=== PATIENT | male | born 1950 | race Caucasian/White ===

== ENCOUNTER 2020-08-21 08:49 | Outpatient (CLI) | payer MEDICARE, SELFPAY ==
--- NOTE | 2020-08-21 11:30 | NEURO_ITS ---
Impression: # Complains of numbness of lower extremities. # Proximal and distal neuropathy involving motor and sensory nerves. # Neurogenic changes noted on the needle/EMG exam. # Severe mixed neuropathy. # Clinical correlation recommended. Nerve Conduction Studies Anti Sensory Summary Table Stim Site NR Peak (ms) P-T Amp (?V) Site1 Site2 Delta-P (ms) Dist (cm) Abdirizak (m/s) Left Sup Fibular Anti Sensory (Ant Lat Mall) NO RESPONSE 14 cm NR 14 cm Ant Lat Mall 16.0 Right Sup Fibular Anti Sensory (Ant Lat Mall) 14 cm 5.2 12.8 14 cm Ant Lat Mall 5.2 16.0 31 Left Sural Anti Sensory (Lat Mall) Calf 7.4 11.7 Calf Lat Mall 7.4 16.0 22 Right Sural Anti Sensory (Lat Mall) NO RESPONSE Calf NR Calf Lat Mall 16.0 Motor Summary Table Stim Site NR Onset (ms) O-P Amp (mV) Site1 Site2 Delta-0 (ms) Dist (cm) Abdirizak (m/s) Left Peroneal Motor (Vastus Med) Ankle 5.5 1.3 Popit Ankle 11.8 38.0 32 Popit 17.3 0.5 Right Peroneal Motor (Vastus Med) Ankle 4.8 0.4 Popit Ankle 11.0 40.0 36 Popit 15.8 0.2 Left Tibial Motor (Abd Santizo Brev) NO RESPONSE Ankle NR Knee NR Right Tibial Motor (Abd Santizo Brev) NO RESPONSE Ankle NR Knee NR F Wave Studies NR F-Lat (ms) L-R F-Lat (ms) Left Peroneal (Mrkrs) (EDB) 63.13 2.60 Right Peroneal (Mrkrs) (EDB) 65.73 2.60 Left Tibial (Mrkrs) (Abd Hallucis) 63.86 Right Tibial (Mrkrs) (Abd Hallucis) DISPERSED RESPONSE NR EMG Side Muscle Nerve Root Ins Act Fibs Amp Dur Recrt Comment Right AntTibialis Dp Br Fibular L4-5 Nml Nml Nml >12ms Reduced Right Gastroc Tibial S1-2 Nml Nml Nml >12ms Reduced Right Fibularis Long Sup Br Fibular L5-S1 Nml Nml Nml >12ms Reduced Right Flex Dig Long Tibial L5-S2 Nml Nml Nml >12ms Reduced Right Ext Dig Brev Dp Br Fibular L5, S1 Nml Nml Nml >12ms Reduced Left AntTibialis Dp Br Fibular L4-5 Nml Nml Nml >12ms Reduced Left Gastroc Tibial S1-2 Nml Nml Nml >12ms Reduced Left Fibularis Long Sup Br Fibular L5-S1 Nml Nml Nml >12ms Reduced Left Flex Dig Long Tibial L5-S2 Nml Nml Nml >12ms Reduced Left Ext Dig Brev Dp Br Fibular L5, S1 Nml Nml Nml >12ms Reduced MTDD
== END 2020-08-21 08:50 | disposition home or self-care (01) ==
PROVIDERS: PCP Internal Medicine; Visit Provider Clinical Nurse Specialist
DX: G62.9 Polyneuropathy, unspecified (principal)
CPT/HCPCS: 95886; 95910

== ENCOUNTER 2021-03-19 11:50 | Outpatient (CLI) | payer MEDICARE, SELFPAY ==
--- NOTE | ~2021-03-19 | XR_ITS ---
XR hip BI 2V w AP pelvis 03/19/2021 12:32 Indication: Hip pain Procedure: 3 views each hip including AP pelvis Comparison: No prior studies for comparison. Findings: There is osteoarthritis of the hips. There is lower lumbar spondylosis. No fracture or trau matic malalignment. Sacral foramen are symmetric. Impression: 1: Mild symmetric osteoarthritis of the hips. Reviewed, dictated and finalized at location B. Impression: 1: Mild symmetric osteoarthritis of the hips.
== END 2021-03-19 11:51 | disposition home or self-care (01) ==
PROVIDERS: PCP Internal Medicine; Visit Provider Nurse Practitioner
DX: M16.0 Bilateral primary osteoarthritis of hip (principal)
CPT/HCPCS: 73521

== ENCOUNTER 2021-04-10 13:05 | Outpatient (RCR) | payer MEDICARE, SELFPAY ==
--- NOTE | 2021-04-10 14:24 | PTOPEVAL ---
PHYSICAL THERAPY EVALUATION Thank you for referring Santosh Blackburn to [facility]. Please review, sign, date and return this plan of care BLACK. I agree with and certify that the following plan of care is medically necessary. Referring Physician Date Attending Provider: Svetlana Vargas NP Evaluation Diagnosis right hip pain Subjective Information Santosh is here today for c/o Query Text:As Reported By Patient/ right hip pain. He reports Family that the pain and symptoms are not unmanageable, but he does go on 3-4 mile walks and he will get stiff or more sore and have a difficult time getting into the car. Also states that lying on his right side it can be more painful. States that he will also find himself walking up on the stairs one at a time on the left some due to pain and some due to difficulty. Self Report Pain Assessment Right Hip(s) Reported Pain Level 1 Pain Description Aching Pain Frequency Chronic,Intermittent Lowest Pain Intensity 0 Greatest Pain Intensity 5 Pain Aggravating Factors Lifting,Stair Climbing Pain Behaviors None Pain Score Pain Score 1: Self Report Interventions Used Interventions Used By Clinicians Exercise,Joint Mobilization Lower Extremity Range of Motion Hip Range of Motion Right Hip Medial Rotation - Passive 40 Hip Lateral Rotation - Passive 45 Lower Extremity Muscle Strength Testing Hip Strength Left Hip Flexion Strength 4+ Good + Hip Extension Strength 3 Fair Hip Abduction Strength 4- Good - Hip Medial Rotation Strength 4+ Good + Hip Lateral Rotation Strength 4+ Good + Hip Strength Comments SLS: ~1-2seconds Right Hip Flexion Strength 4- Good - Hip Extension Strength 3- Fair - Hip Abduction Strength 3 Fair Hip Medial Rotation Strength 4 Good Hip Lateral Rotation Strength 4 Good Hip Strength Comments SLS: ~1-2seconds Knee Strength Bilateral Knee Flexion Strength 5 Normal Knee Extension Strength 5 Normal Muscle Length Testing Muscle Length Testing Left Hamstring Length -30 Query Text:(90 - 90 Position) Right Hamstring Length -50 Query Text:(90 - 90 Position) Palpation Assessment Palpation Palpation tender to palpation of right gluteus medius - patient
--- NOTE | 2021-08-19 17:38 | PCPTNOTE ---
PHYSICAL THERAPY Attending Provider: Svetlana Vargas NP Patient:Santosh Blackburn Date of :1950 Patient has not returned for any further treatments since 04/10/2021, therefore will be discharged at this time. Patient?s initial visit was on 04/10/2021. At time of initial evaluation, Santosh did not feel like he could commit to repeat visits so I left his chart open in case he had any questions. He never reached out so I will assume he is comfortable with his HEP. Thank you for referring this patient to [facility]. Please review, sign, date and return this discharge summary BLACK. I have been updated about the patient's current status and I agree with discharge from the above service at this time. Referring Physician Date
== END 2021-06-24 13:03 | disposition home or self-care (01) ==
LOC: ANHPT 13:05
PROVIDERS: PCP Internal Medicine; Visit Provider Nurse Practitioner
DX: M25.551 Pain in right hip (principal)
CPT/HCPCS: 97110; 97161

== ENCOUNTER 2021-12-26 03:09 | Day surgery (SDC) | payer MEDICARE, SELFPAY ==
[2021-12-18 13:10] VITALS: BMI 33.0
[2021-12-26 11:36] VITALS: BP 144/84; PULSE 60; RESP 20; TEMP 36.2; O2SAT 100
[2021-12-26] MEDS: LACTATED RINGERS 1,000 ML 150 ML IV CONT (11:52)
--- NOTE | 2021-12-26 12:23 | PM.HPGS ---
History of Present Illness History of Present Illness Consent: Risks, benefits, and alternatives have been discussed and questions answered. Patient agrees to proceed with procedure. Chief complaint: positive FOBT Narrative: Santosh Blackburn is a 71 year old male referred for colon cancer screening. He recently did a test for occult blood in the stools which was positive. His last colonoscopy was 13 years ago Review of Systems Review of Systems: All systems reviewed & are unremarkable except as noted in HPI and below PMFSH Past Medical History Medical History Allergies Atrial fibrillation Colonic polyp HTN (hypertension) Hypogonadism Hypothyroid Insomnia Mixed hyperlipidemia Peripheral neuropathy Surgical History Surgical History History of prostatectomy Family History Family History Sibling Diabetes mellitus Patient's brother is in good health Father Family history unknown Mother Family history unknown Other Family history of alcoholism Hypertension Social History Social History Smoking packs per day: 1.5 Smoking cigarettes per day: 30.0 Years smoked: 10 Smoking pack-years: 15.00 Smoking status: Former smoker Tobacco type: cigarettes Smoking end date: 10/12/76 Alcohol intake: never Substance use: current Substance use type: marijuana and opiates Other substance usage details: Percocet as needed for neuropathy pain. Smokes a little pot for pain Living arrangements: alone Spiritual care concerns: No Meds Home Medications and Allergies Home Medications Medication Instructions Recorded Confirmed Type metoprolol succinate 100 mg 100 mg PO DAILY 05/07/20 12/18/21 History tablet,extended release 24 hr rivaroxaban 20 mg tablet 20 mg PO DAILY 05/07/20 12/18/21 History hydrocodone 5 mg-acetaminophen 325 1 tablet PO Q12H PRN #38 tablet 03/20/21 12/18/21 Rx mg tablet levothyroxine 88 mcg tablet 88 mcg PO DAILY #90 tablet 05/27/21 12/18/21 Rx atorvastatin 10 mg tablet 10 mg PO QHS #90 tablet 06/12/21 12/18/21 Rx losartan 100 mg tablet 100 mg PO DAILY 06/12/21 12/18/21 History trazodone 50 mg tablet 50 mg PO QHS 06/12/21 12/18/21 History allopurinol 100 mg tablet 100 mg PO DAILY #90 tablet 10/22/21 12/18/21 Rx gabapentin 400 mg capsule 400 mg PO QHS #90 cap 11/19/21 12/18/21 Rx Allergies Allergy/AdvReac Type Severity Reaction Status Date / Time No Known Allergies Allergy Verified 06/12/21 11:00 Vital Signs Vital Signs - 24 hr 12/26/21 11:36 Temperature 36.2 C L Pulse Rate 60 Respiratory Rate 20 Blood Pressure 144/84 H Pulse Oximetry 100 Exam Const: General: alert Orientation/consciousness: patient oriented x3 Resp: Auscultation: clear to auscultation bilaterally Cardio: Rhythm: regular rhythm GI: GI Palp: Yes Soft to palpation and No Tenderness to palpation present (GI) Neuro: General: patient oriented x3 Assessment and Plan Assessment and plan (1) Colon cancer screening: Code(s): Z12.11 - Encounter for screening for malignant neoplasm of colon Status: Acute Assessment and Plan: Colonoscopy with possible biopsy or polypectomy or cautery or injection of substances.
--- NOTE | 2021-12-26 12:24 | WPDANESEPPF ---
Anes - Initial Pre Proc Eval Procedure: Operation Date: 12/26/21 13:00 Proposed Procedures p Colonoscopy - Anupam Graff MD Date/Time: 12/26/21 12:24 Surgeon: Anupam Graff MD Pre Op Diagnosis: positive FOBT Patient Data Age: 71 Gender: M Height: 1.78 m Weight: 105.3 kg Last Vital Signs Temp 36.2 C L 12/26/21 11:36 Pulse 60 12/26/21 11:36 Resp 20 12/26/21 11:36 BP 144/84 H 12/26/21 11:36 Pulse Ox 100 12/26/21 11:36 Allergies Allergy/AdvReac Type Severity Reaction Status Date / Time No Known Allergies Allergy Verified 06/12/21 11:00 Home Medications Medication Instructions Recorded Confirmed Type metoprolol succinate 100 mg 100 mg PO DAILY 05/07/20 12/18/21 History tablet,extended release 24 hr rivaroxaban 20 mg tablet 20 mg PO DAILY 05/07/20 12/18/21 History hydrocodone 5 mg-acetaminophen 325 1 tablet PO Q12H PRN #38 tablet 03/20/21 12/18/21 Rx mg tablet levothyroxine 88 mcg tablet 88 mcg PO DAILY #90 tablet 05/27/21 12/18/21 Rx atorvastatin 10 mg tablet 10 mg PO QHS #90 tablet 06/12/21 12/18/21 Rx losartan 100 mg tablet 100 mg PO DAILY 06/12/21 12/18/21 History trazodone 50 mg tablet 50 mg PO QHS 06/12/21 12/18/21 History allopurinol 100 mg tablet 100 mg PO DAILY #90 tablet 10/22/21 12/18/21 Rx gabapentin 400 mg capsule 400 mg PO QHS #90 cap 11/19/21 12/18/21 Rx Patient hx anesthesia problems: none Family hx anesthesia problems: none Results Review: All pre-operative results and documents have been reviewed as part of the pre-operative evaluation. [facility] Past Medical History Medical History Allergies Atrial fibrillation Colonic polyp HTN (hypertension) Hypogonadism Hypothyroid Insomnia Mixed hyperlipidemia Peripheral neuropathy Surgical History Surgical History History of prostatectomy Family History Family History Sibling Diabetes mellitus Patient's brother is in good health Father Family history unknown Mother Family history unknown Other Family history of alcoholism Hypertension Social History Social History Smoking packs per day: 1.5 Smoking cigarettes per day: 30.0 Years smoked: 10 Smoking pack-years: 15.00 Smoking status: Former smoker Tobacco type: cigarettes Smoking end date: 10/12/76 Alcohol intake: never Substance use: current Substance use type: marijuana and opiates Other substance usage details: Percocet as needed for neuropathy pain. Smokes a little pot for pain Living arrangements: alone Spiritual care concerns: No Anes - Eval Final PreProcedure Day of Procedure 12/26/21 12:24 Patient weight: obese Heart: regular rate and rhythm Lungs: clear to auscultation Airway: Mallampati scale class II Neurological: alert and oriented Last oral intake: >/= 8 hours ASA classification: III Emergent: no Anesthetic plan: proceed Anesthesia type and monitoring: general GIVS and standard monitoring Results Review: All pre-operative results and documents have been reviewed as part of the pre-operative evaluation. Informed Consent: The patient's anesthetic plan and its attendant risks and benefits were discussed with the patient/family/POA. Questions were solicited and answers provided to the satisfaction of the patient/family/POA.
[2021-12-26 13:19] VITALS: BP 80/47; PULSE 65; RESP 21; O2SAT 97
[2021-12-26 13:29] VITALS: BP 107/65; PULSE 54; RESP 19; O2SAT 99
[2021-12-26 13:39] VITALS: BP 115/72; PULSE 61; RESP 18; O2SAT 100
== END 2021-12-26 14:10 | disposition home or self-care (01) ==
PROVIDERS: PCP Internal Medicine; Visit Provider Internal Medicine Gastroenterology
PROC: 0DJD8ZZ Inspection of Lower Intestinal Tract, Via Natural or Artificial Opening Endoscopic (ICD-10-PCS; CPT 45378; principal; 2021-12-26 13:00)
DX: Z12.11 Encounter for screening for malignant neoplasm of colon (principal); D12.2 Benign neoplasm of ascending colon; R19.5 Other fecal abnormalities; K57.30 Diverticulosis of large intestine without perforation or abscess without bleeding; I48.91 Unspecified atrial fibrillation; I10 Essential (primary) hypertension; E78.2 Mixed hyperlipidemia; E03.9 Hypothyroidism, unspecified; G62.9 Polyneuropathy, unspecified; Z79.01 Long term (current) use of anticoagulants; Z79.891 Long term (current) use of opiate analgesic; F12.90 Cannabis use, unspecified, uncomplicated
CPT/HCPCS: 45385; 88305; J2704; J7120

== ENCOUNTER → 2022-08-18 15:01 | Outpatient (CLI) | payer MEDICARE, SELFPAY ==
--- NOTE | ~2022-08-18 | XR_ITS ---
EXAMINATION: XR chest 2V DATE: 08/18/2022 15:25 INDICATION: Decreased breath sounds in the right lung base TECHNIQUE: PA and lateral views of the chest are obtained. COMPARISON: 06/10/2017 FINDINGS: The lungs are free of acute opacities. There is mild elevation of the right hemidiaphragm. No pleural effusion or pneumothorax. The cardiomediastinal silhouette is normal. There is moderate th oracic spondylosis. IMPRESSION: 1. No acute cardiopulmonary abnormality. Reviewed, dictated and finalized at location B. 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
== END ==
PROVIDERS: PCP Internal Medicine; Visit Provider Internal Medicine
DX: R06.89 Other abnormalities of breathing (principal)
CPT/HCPCS: 71046

== ENCOUNTER 2024-07-11 10:37 | Outpatient (CLI) | payer MEDICARE, SELFPAY ==
[2024-07-11 13:30] LABS: Basophils Percent Auto 0.3 % (0.2-1.2); Eosinophils Percent Auto 0.4 % (0-4.4); Hematocrit 45.3 % (42.0-52.0); Hemoglobin 14.5 g/dL (14.0-18.0); Immature Granulocyte Absolute 0.03 K/mm3 (0.00-0.031); Immature Granulocyte Percent A 0.4 % (0-0.5); Mean Corpuscular Hemoglobin 29.6 pg (26-34); Mean Corpuscular Volume 92.4 fl (80-100); Mean Platelet Volume 10.3 fl (7.4-10.4); Monocytes Absolute Auto 0.4 K/mm3 (0.1-0.6); Monocytes Percent Auto 5.4 % (2.6-8.5); Neutrophils Absolute Auto 4.9 K/mm3 (1.3-6.7); Neutrophils Percent Auto 71.5 % (45.5-73.1); Platelet Count Result 192 k/mm3 (150-375); White Blood Count 6.8 K/mm3 (4.5-10.0)
[2024-07-11 13:41] LABS: Anion Gap 7 mmol/L (4-12); Blood Urea Nitrogen 12 mg/dL (9-20); Calcium 9.2 mg/dL (8.4-10.2); Carbon Dioxide 30 mmol/L (22-30); Chloride 102 mmol/L (98-107); Estimated Glomerular Filt Rate > 60; Glucose 97 mg/dL (65-110); Potassium 4.1 mmol/L (3.4-5.0); Sodium 139 mmol/L (137-145)
[2024-07-11 14:09] LABS: Prostate Specific Antigen < 0.1 ng/mL (< OR = 4.0)
== END 2024-07-11 10:38 | disposition home or self-care (01) ==
PROVIDERS: PCP Internal Medicine; Visit Provider Internal Medicine
DX: I48.0 Paroxysmal atrial fibrillation (principal); E03.9 Hypothyroidism, unspecified; I10 Essential (primary) hypertension; Z79.01 Long term (current) use of anticoagulants; Z85.46 Personal history of malignant neoplasm of prostate
CPT/HCPCS: 36415; 80048; 84153; 84443; 85025

== ENCOUNTER 2024-12-13 11:41 | Outpatient (CLI) | payer MEDICARE, SELFPAY ==
[2024-12-13 13:24] LABS: Basophils Percent Auto 0.2 % (0.2-1.2); Eosinophils Percent Auto 0.5 % (0-4.4); Hematocrit 42.4 % (42.0-52.0); Hemoglobin 14.1 g/dL (14.0-18.0); Immature Granulocyte Absolute 0.01 K/mm3 (0.00-0.031); Immature Granulocyte Percent A 0.2 % (0-0.5); Lymphocytes Absolute Auto 1.26 K/mm3 (0.9-3.2); Lymphocytes Percent Auto 21.4 % (18.3-44.2); Mean Corpuscular HGB Conc 33.3 g/dl (32-36); Mean Corpuscular Hemoglobin 30.3 pg (26-34); Mean Corpuscular Volume 91.2 fl (80-100); Mean Platelet Volume 10.1 fl (7.4-10.4); Monocytes Absolute Auto 0.4 K/mm3 (0.1-0.6); Monocytes Percent Auto 6.1 % (2.6-8.5); Neutrophils Absolute Auto 4.2 K/mm3 (1.3-6.7); Neutrophils Percent Auto 71.6 % (45.5-73.1); Platelet Count Result 189 k/mm3 (150-375); Red Blood Count 4.65 M/mm3 (4.6-6.20); Red Cell Distribution Width 13.4 % (11.5-14.5); White Blood Count 5.9 K/mm3 (4.5-10.0)
[2024-12-13 14:23] LABS: Free T3 2.91 pg/mL (2.45-5.93)
[2024-12-13 21:59] LABS: Alanine Aminotransferase 14 U/L (6-50); Albumin Level 4.2 g/dL (3.5-5.1); Alkaline Phosphatase 53 U/L (38-126); Anion Gap 8 mmol/L (4-12); Aspartate Amino Transferase 27 U/L (17-59); Bilirubin,Total 0.6 mg/dL (0.2-1.3); Blood Urea Nitrogen 8 mg/dL (9-20); Calcium 9.3 mg/dL (8.4-10.2); Carbon Dioxide 29 mmol/L (22-30); Chloride 104 mmol/L (98-107); Cholesterol 150 mg/dL (0-200); Estimated Glomerular Filt Rate > 60; Glucose 105 mg/dL (65-110); HDL Direct 30 mg/dL; Potassium 4.3 mmol/L (3.4-5.0); Sodium 141 mmol/L (137-145); Triglycerides 86 mg/dL (<150)
[2024-12-13 22:12] LABS: LDL Cholesterol Direct 95 mg/dL
[2024-12-13 22:30] LABS: Prostate Specific Antigen < 0.1 ng/mL (< OR = 4.0)
== END 2024-12-13 11:42 | disposition home or self-care (01) ==
PROVIDERS: PCP Internal Medicine; Visit Provider Internal Medicine
DX: I48.91 Unspecified atrial fibrillation (principal); I10 Essential (primary) hypertension; E78.2 Mixed hyperlipidemia; Z79.01 Long term (current) use of anticoagulants; E03.9 Hypothyroidism, unspecified; Z85.46 Personal history of malignant neoplasm of prostate; I48.0 Paroxysmal atrial fibrillation
CPT/HCPCS: 36415; 80053; 80061; 82172; 84153; 84443; 84481; 85025

== ENCOUNTER 2025-06-05 13:30 | Outpatient (CLI) | payer MEDICARE, SELFPAY ==
--- OUTSIDE RECORDS SUMMARY | 2025-06-05 13:37 | XMS_ITS | Clinical Summary ---
Author Organization [facility] Address [address] [place] [address] Care Team Providers Care Restaurant Assistant Name Role Phone Damian Wright DO Primary Care Provider [phone] Joe Bond MD Unavailable [phone] Allergies No known active allergies Medications levothyroxine (SYNTHROID) 88 MCG tablet Take 1 tablet (88 mcg total) by mouth daily. Active losartan (COZAAR) 50 MG tablet Take 1 tablet (50 mg total) by mouth daily. Active allopurinol (ZYLOPRIM) 100 MG tablet Take 1 tablet (100 mg total) by mouth daily. Active pentoxifylline CR (TRENTAL) 400 MG tablet Take 1 tablet (400 mg total) by mouth 3 (three) times daily with meals. Active metoprolol succinate ER (TOPROL-XL) 100 MG 24 hr tablet Take 1 tablet (100 mg total) by mouth nightly. Active atorvastatin (LIPITOR) 10 MG tablet Take 1 tablet (10 mg total) by mouth nightly at bedtime. Active rivaroxaban (XARELTO) 20 MG Tab tablet Take 1 tablet (20 mg total) by mouth nightly. Active traZODone (DESYREL) 50 MG tablet Take 1 tablet (50 mg total) by mouth nightly at bedtime. Active gabapentin (NEURONTIN) 300 MG capsule Take 1 capsule (300 mg total) by mouth nightly. Active Multiple Vitamins-Minera ls (MULTIVITAL OR) Take 1 tablet by mouth daily. Active COLLAGEN OR Take 1 tablet by mouth daily. Active HYDROcodone-ke taminophen (NORCO) 5-325 MG tablet Take 1 tablet by mouth nightly as needed. 06/09/2022 Active Family History Medical History Relation Comments Diabetes Brother Hypertension Brother Diabetes Father Hypertension Father Hypertension Mother Diabetes Sister Hypertension Sister Relation Status Comments Brother Alive Daughter Alive Father Mother Sister Son Alive Social History Tobacco Use Types Packs/Day Years Used Date Smoking Tobacco: Former Cigarettes 1 10 1 - 1991 Smokeless Tobacco: Former Quit: 1991 Tobacco Cessation:Counseling Given: Not Answered Alcohol Use Standard Drinks/Week Comments Never 0 (1 standard drink = 0.6 oz pur e alcohol) Sex and Gender Information Value Date Recorded Sex Assigned at Not on file Legal Sex Male 11:31 AM CDT Gender Identity Not on file Sexual Orientation Not on file Last Filed Vital Signs Vital Sign Reading Time Taken Comments Blood Pressure 143/87 01/31/2025 10:25 AM CDT Pulse 69 01/31/2025 10:25 AM CDT Temperature 36 C (96.8 F) 01/31/2025 10:25 AM CDT Respiratory Rate 16 01/31/2025 10:2 5 AM CDT Oxygen Saturation 98% 01/31/2025 10: 25 AM CDT Inhaled Oxygen Concentration - - Weight 98.4 kg (216 lb 14.9 oz) 01/31/2025 7:30 AM CDT Height 180.3 cm (5' 11) 01/31/2025 7:30 AM CDT Body Mass Index 30.26 01/31/2025 7:30 AM CDT Plan of Treatment Health Maintenance Due Date Last Done Comments Colorectal Cancer Screening Colonoscopy (10 Years) 1952 Hepatitis C 1970 DTaP, Tdap and Td Vaccines (1 - Tdap) 1971 AAA SCREENING 2017 Annual Medicare Wellness Visit 2017 Pneumococcal Vaccine: 50+ Years (2 of 2 - PPSV23) 05/29/2021 05/29/2020 COVID-19 Vaccine ( - season) 2024 04/01/2022, 08/29/2021, 01/15/2021, Additional history exists RSV Immunization or 60+ Years (1 - 1-dose 75+ series) 2027 Zoster Vaccines Completed 09/27/2020, 05/29/2020 Meningococcal B Vaccine Aged Out No l onger eligible based on patient's age to complete this topic Meningococcal Vaccine Aged Out No mark anthony daniel eligible based on patient's age to complete this topic RSV Immunizations Under 20 Months Aged Out No longer eligible based on patient's age to complete this topic Medical Devices Implanted Type Area Frame Repairer Device Identifier Shelf Expiration Date Model / Serial / Lot Wire Fixation [employer] L9 In Od.045 In 2 Tr - [id number] Implanted:Qty: 3 on 06/17/2022 by Preet Dias DPM at [facility] Wire Left: Toe [employer] [id number] / / Description:3 wires used and implanted into 2nd, 3rd, 4th, and 5th toes of left foot Wire Fixation [employer] L9 In Od.045 In 2 Tr - [id number] Implanted:Qty: 1 on 01/31/2025 by Preet Dias DPM at [facility] Wire Right: Toe [employer] 1600-945NS / / Description:2nd toe Insurance [facility] Care Teams Restaurant Assistant Relationship Specialty Start Date End Date Damian Wright DO [address] [facility] [address] [place], [place] [id number] PCP - General INTERNAL MEDICINE 06/05/22 [place] [address] [address] CARDIOVASCULAR DISEASE 06/10/22
--- OUTSIDE RECORDS SUMMARY | 2025-06-05 13:37 | XMS_ITS | Clinical Summary ---
Author Organization [facility] Address [facility] [place] [address] Care Team Providers Care Irs Agent Name Role Phone Damian Wright DO Primary Care Provider [phone] Allergies No known active allergies Medications ALPRAZolam (XANAX) 0.5 mg tablet take 1 tablet by oral route 3 times every day 0 0 4 Active rivaroxaban (XARELTO) 20 mg tabletIndication s:a- fib Take 1 tablet by mouth nightly. Active metoprolol XL (TOPROL-XL) 100 mg 24 hr tabletIndication s:hypertension Take 100 mg by mouth nightly. Active traZODone (DESYREL) 100 mg tabletIndication s:insomnia associated with depression Take 100 mg by mouth nightly. Active levothyroxine (SYNTHROID, LEVOTHROID) 88 mcg tabletIndication s:hypothyroidism Take 88 mcg by mouth room attendants before breakfast. Active allopurinol (ZYLOPRIM) 100 mg tablet 8 Active losartan (COZAAR) 50 mg tablet 9 Active acetaminophen 500 mg capsuleIndicatio ns:Pain Take 2 capsules (1,000 mg total) by mouth every 6 (six) hours as needed for pain. 90 tablet 9 Active docusate sodium (COLACE) 100 mg capsuleIndicatio ns:constipation Take 1 capsule (100 mg total) by mouth 2 (two) times a day as needed for constipation. 60 capsule 9 Active bacitracin-polym yxin B (POLYSPORIN) ointmentIndicati ons:Minor Bacterial Skin Infections Apply topically 3 (three) times a day as needed (irritation). 15 g 9 Active oxybutynin (DITROPAN) 5 mg tablet Take 1 tablet (5 mg total) by mouth 3 (three) times a day as needed (bladder spasms). 40 tablet 9 Active sildenafiL (VIAGRA) 100 mg tabletIndication s:Erectile Dysfunction Take 1/2 or 1 tablet ONE hour prior to activity on an empty stomach daily PRN 30 tablet 11 3 Active Active Problems Problem Noted Date Diagnosed Date Prostate cancer 10/19/2018 Overview (10/19/2018): Added automatically from request for surgery [id number] Alcoholic hepatitis 11/22/2012 Overview (01/15/2017): Alcoholic hepatitis Nondependent alcohol abuse, in remission 013 Overview (01/15/2017): ALCOHOL ABUSE-IN REMISS Pure hypercholesterolemia 11/22/2012 Overview (01/15/2017): PURE HYPERCHOLESTEROLEM Hypertension 11/22/2012 Overview (01/16/2017): HYPERTENSION NOS History of anticoagulant therapy 11/22/2012 Overview (01/16/2017): LONG-TERM USE ANTICOAGUL Atrial fibrillation 11/22/2012 Overview (01/16/2017): ATRIAL FIBRILLATION Surgical History Surgery Date Site/Laterality Comments HERNIA REPAIR Hernia repair EYE SURGERY 10/12/2017 - 10/11/2018 Medical History Medical History Date Comments Gout Gout Hx Other Medical Pseudogout Hx Other Medical Recovered EtOH abuse (September 12 013; Comments: [facility] 03/20/2014 - Hx Other Medical Hernia repair; Comments: [facility] 03/20/2014 - HTN (hypertension) HLD (hyperlipidemia) Hypothyroid Atrial fibrillation (HCC) Alcoholic hepatitis Prostate cancer (HCC) Sleep apnea Family History Medical History Relation Name Comments Heart disease Father heart disease; Cause of : heart disease Other Mother Pacemaker; Other Other 2 alcohol abuse; Anesthesia problems Neg Hx Relation Name Status Comments Father Mother Alive Other 1 Alive Other 2 Social History Tobacco Use Types Packs/Day Years Used Date Smoking Tobacco: Former Cigarettes 2 16 1 967 - 1982 Smokeless Tobacco: Never Alcohol Use Standard Drinks/Week Comments No 0 (1 standard drink = 0.6 oz pur e alcohol) no longer drinks--x 2.5 years Sex and Gender Information Value Date Recorded Sex Assigned at Not on file Legal Sex Male 2:47 AM PLACEMENT MANAGER Gender Identity Not on file Sexual Orientation Not on file Obstetrics History Last Filed Vital Signs Vital Sign Reading Time Taken Comments Blood Pressure 165/85 02/08/2019 10:44 AM CDT Pulse 63 12/09/2018 12:11 PM PLACEMENT MANAGER Temperature 36.4 C (97.6 F) 02/08/2019 10:44 AM CDT Respiratory Rate 18 12/09/2018 12:1 1 PM PLACEMENT MANAGER Oxygen Saturation 95% 12/09/2018 12: 11 PM PLACEMENT MANAGER Inhaled Oxygen Concentration - - Weight 112.6 kg (248 lb 3.8 oz) 019 11:58 AM PLACEMENT MANAGER Height 180.3 cm (5' 10.98) 12/08/2018 11:58 AM PLACEMENT MANAGER Body Mass Index 34.64 12/08/2018 11:58 AM PLACEMENT MANAGER Plan of Treatment Health Maintenance Due Date Last Done Comments Colon Cancer Screening-Colonoscopy 1950 Depression Screening 1950 Fall Risk Assessment 1950 Hepatitis C Screening 1950 DTaP/Tdap/Td Vaccine (1 - Tdap) 1963 Hepatitis B Screening 1970 Abdominal Aortic Aneurysm (A AA) Screen 2017 Well Visit 65+ 2017 Zoster Vaccine (2 of 2) 07/24/2020 05/29/2020 Pneumococcal vaccine 65+ (2 of 2 - PCV20 or PCV21) 05/29/2021 05/29/2020 Influenza Vaccine (#1) 2025 06/12/2020 Prostate Cancer Screening-PSA Discontinued , 11/07/2022, 09/11/2020, Additional history exists Procedures Procedure Name Priority Date/Time Associated Diagnosis Comments PSA SCREEN Routine 11/23/2023 11:04 AM PLACEMENT MANAGER History of prostate cancer from Last 3 Months or Most Recently Relevant to Health Maintenance Results * PSA screen (11/23/2023 11:04 AM PLACEMENT MANAGER) PSA <0.1 0.0 - 4.0 ng/mL [facility] - 01 Comment: Ana ECLIA methodology. According to the [place] [employer], Serum PSA should decrease and remain at undetectable levels after radical prostatectomy. The AUA defines biochemical recurrence as an initial PSA value 0.2 ng/mL or greater followed by a subsequent confirmatory PSA value 0.2 ng/mL or greater. Values obtained with different assay methods or kits cannot be used interchangeably. Results cannot be interpreted as absolute evidence of the presence or absence of malignant disease. Blood 11/23/2023 11:0 4 AM PLACEMENT MANAGER 11/23/2023 Narrative [facility] - 11/24/2023 4:08 AM PLACEMENT MANAGER Performed at: 01 - [address] [id number] Personal Development Mentor: Carlos A Gold PhD, Phone: [phone] Betito Sanchez NP LAB BLOOD ORDERABLES F inal Result [facility] - 01 from Last 3 Months or Most Recently Relevant to Health [place] [address] [facility] Address: [facility] [id number] [place] [phone] [facility] MEDICARE [facility] Address: [facility] [id number] [place] [phone] Advance Directives For more information, please contact: [phone] * Full Code (Latest Code Status on File) Date Activated Date Inactivated Comments 12/08/2018 8:53 PM 12/09/2018 6:06 PM Care Teams Irs Agent Relationship Specialty Start Date End Date Damian Wright DO PCP - General 12/03/12
[2025-06-05 15:45] LABS: Prostate Specific Antigen < 0.1 ng/mL (< OR = 4.0)
== END 2025-06-05 13:31 | disposition home or self-care (01) ==
LOC: ANHGOSHLAB 13:30
PROVIDERS: PCP Internal Medicine; Visit Provider Internal Medicine
DX: Z12.5 Encounter for screening for malignant neoplasm of prostate (principal); Z85.46 Personal history of malignant neoplasm of prostate
CPT/HCPCS: 36415; 84153

== ENCOUNTER 2025-08-24 15:48 | Outpatient (CLI) | payer MEDICARE, SELFPAY ==
--- OUTSIDE RECORDS SUMMARY | 2025-08-24 15:50 | XMS_ITS | Clinical Summary ---
Author Organization [facility] Address Formerly [facility], [facility] [place] [address] Care Team Providers Care Manager Lsw Name Role Phone Damian Wright DO Primary Care Provider [phone] Allergies No known active allergies Medications ALPRAZolam [...] tabletIndication s:hypothyroidism Take 88 mcg by mouth shift manager before breakfast. Active allopurinol (ZYLOPRIM) 100 mg [...] (10/19/2018): Added automatically from request for surgery [id number] Alcoholic hepatitis 11/22/2012 Overview (01/15/2017): Alcoholic hepatitis [...] Recovered EtOH abuse (September 12 013; Comments: Mayra 03/20/2014 - Hx Other Medical Hernia repair; Comments: [facility] 03/20/2014 - HTN (hypertension) HLD (hyperlipidemia) Hypothyroid [...] on file Legal Sex Male 2:[address] REGISTRAR Gender Identity Not on file Sexual Orientation Not on file Last Filed Vital Signs Vital Sign Reading Time Taken Comments Blood Pressure 165/85 02/08/2019 10:44 AM CDT Pulse 63 12/09/2018 12:[address] REGISTRAR Temperature 36.4 C (97.6 F) 02/08/2019 10:44 AM CDT Respiratory Rate 18 12/09/2018 12:[address] REGISTRAR Oxygen Saturation 95% 12/09/2018 12: [address] REGISTRAR Inhaled Oxygen Concentration - - Weight 112.6 kg (248 lb 3.8 oz) 019 11:[address] REGISTRAR Height 180.3 cm (5' 10.98) 12/08/2018 11:[address] REGISTRAR Body Mass Index 34.64 12/08/2018 11:[address] REGISTRAR Plan of Treatment Health Maintenance Due Date [...] Comments PSA SCREEN Routine 11/23/2023 11:[address] REGISTRAR History of prostate cancer from Last 3 Months or Most Recently Relevant to Health Maintenance Results * PSA screen (11/23/2023 11:[address] REGISTRAR) PSA <0.1 0.0 - 4.0 ng/mL [facility] - 01 Comment: Ana ECLIA methodology. According to the [employer], Serum PSA should decrease and [...] malignant disease. Blood 11/23/2023 11:[address] REGISTRAR 11/23/2023 Narrative [facility] - 11/24/2023 4:[address] REGISTRAR Performed at: 01 - [address] [id number] Shells Inspector: Carlos A Gold PhD, Phone: [phone] Betito Sanchez NP LAB BLOOD ORDERABLES F inal Result [facility] - 01 from Last 3 Months or Most Recently Relevant to Health Maintenance Insurance [employer] [facility] [facility] MEDICARE ADVANTAGE [employer] MED[employer] ADVANTAGE Advance Directives For more information, please contact: [phone] * Full Code (Latest Code Status on File) Date Activated Date Inactivated Comments 12/08/2018 8:53 PM 12/09/2018 6:06 PM Care Teams Manager Lsw Relationship Specialty Start Date End Date Damian Wright DO PCP - General 12/03/12
--- OUTSIDE RECORDS SUMMARY | 2025-08-24 15:50 | XMS_ITS | Clinical Summary ---
Author Organization [facility] Address [address] [place] [address] Care Team Providers Care Piano Refinisher Name Role Phone Damian Wright DO Primary Care Provider [phone] Joe Bond MD Unavailable [phone] Allergies No known active allergies Medications [...] Vaccine: 50+ Years (2 of 2 - PCV20 or PCV21) 05/29/2021 05/29/2020 COVID-19 Vaccine (5 - season) 2025 04/01/2022, 08/29/2021, 01/15/2021, Additional history exists Influenza Adult (#1) 2025 RSV Immunization or 60+ Years (1 - 1-dose 75+ series) 2027 Zoster Vaccines Completed 09/27/2020, 05/29/2020 Hepatitis A Vaccines Aged Out No long er eligible based on patient's age to complete this topic Meningococcal B Vaccine Aged Out No l onger eligible based on patient's age to complete this topic Meningococcal Vaccine Aged Out No mark anthony daniel eligible based on patient's age to complete this topic RSV Immunizations Under 20 Months Aged Out No longer eligible based on patient's age to complete this topic Medical Devices Implanted Type Area Aligner Typewriter Device Identifier Shelf Expiration Date Model / Serial / Lot Wire Fixation [employer] L9 In Od.045 In 2 Tr - [id number] Implanted:Qty: 3 on 06/17/2022 by Preet Dias DPM at [facility] Wire Left: Toe [employer] [id number] / / Description:3 wires used and implanted into 2nd, 3rd, 4th, and 5th toes of left foot Wire Fixation [employer] L9 In Od.045 In 2 Tr - [id number] Implanted:Qty: 1 on 01/31/2025 by Preet Dias DPM at [facility] Wire Right: Toe [employer] [id number] / / Description:2nd toe Insurance [facility] MEDICARE Care Teams Piano Refinisher Relationship Specialty Start Date End Date Damian Wright DO [address] [facility] [address] [place] [address] PCP - General INTERNAL MEDICINE 06/05/22 [place] [address] [place] [address] [address] CARDIOVASCULAR DISEASE 06/10/22
[2025-08-24 19:57] LABS: Ferritin 97.00 ng/mL (11.1-264)
== END 2025-08-24 15:49 | disposition home or self-care (01) ==
LOC: ANHGOSHLAB 15:49
PROVIDERS: PCP Internal Medicine; Visit Provider Family Medicine
DX: I48.0 Paroxysmal atrial fibrillation (principal)
CPT/HCPCS: 36415; 82728